=== PATIENT | male | born 1970 | race Caucasian/White ===

== ENCOUNTER 2018-02-28 08:04 | Emergency (ER) | payer OTHER ==
[~2018-02-28] VITALS: Ht 182.9 cm; Wt 93.0 kg
[2018-02-28 09:13] LABS: ABSOLUTE BASOPHIL COUNT 0 /CUMM (0.0-0.2); ABSOLUTE EOSINOPHIL COUNT 0.2 /CUMM (0.0-0.7); ABSOLUTE GRANULOCYTE CT 4.7 /CUMM (1.4-6.5); ABSOLUTE LYMPH COUNT 0.9 /CUMM (1.2-3.4); ABSOLUTE MONOCYTE COUNT 0.5 /CUMM (0.10-0.60); BASOPHIL % 0.6 % (0.0-2.0); EOSINOPHIL % 2.8 % (0-5); GRANULOCYTE % 74.5 % (42.2-75.2); HEMATOCRIT 45.9 % (42-52); MEAN CORPUSCULAR HGB 29.9 PG (27.0-31.0); MEAN CORPUSCULAR HGB CONC 33.8 G/DL (33.0-37.0); MEAN CORPUSCULAR VOLUME 88.5 FL (80.0-94.0); MEAN PLATELET VOLUME 7.3 FL (7.4-10.4); PLATELET COUNT 215 /CUMM (130-400); RBC DISTRIBUTION WIDTH 13.9 % (11.5-14.5); RED BLOOD CELL CT 5.19 /CUMM (4.70-6.10); WHITE BLOOD CELL COUNT 6.4 /CUMM (4.8-10.8)
--- NOTE | 2018-02-28 09:23 | ED GI/GU/ABDOMINAL COMPLAINT ---
History of Present Illness General Chief Complaint: Male Genitourinary Problems Stated Complaint: "MY PENIS IS BLACK AND BLUE" Source: patient, old records Exam Limitations: no limitations Vital Signs & Intake/Output Vital Signs & Intake/Output Vital Signs Date Time Temp Pulse Resp B/P B/P Pulse O2 O2 Flow FiO2 Mean Ox Delivery Rate 02/28 0811 96.0 84 16 136/85 98 Room Air Allergies Coded Allergies: No Known Allergies (02/28/18) Triage Note: PT TO ER C/C ECCHYMOSIS TO PENIS X 1 DAY, DENIES INJURY OR TRAUMA. NO RECENT USE OF ED MEDICATIONS. PT HAD INTERCOURSE LAST NIGHT WITHOUT ISSUE. DENIES ERECTION CURRENTLY. DENIES PAIN TO AREA. Triage Nurses Notes Reviewed? yes Onset: Morning Duration: hour(s):, constant, continues in ED Timing: recent history Quality/Severity: no pain Location: penis Radiation: no radiation Activities at Onset: none Prior Abdominal Problems: none Sexually Active: Yes Last Time You Were Sexual: last night Sexual Orientation: Heterosexual Use of Protection: No No Modifying Factors: none HPI: Last night after going out with his spouse and drinking alcohol they had sexual intercourse. During this time his spouse reported that his penis felt thicker. He does not report pain during this time and felt that he ejaculated. He presents with ecchymosis of the penis without testicular pain. He denies fever chills nausea vomiting diarrhea abdominal pain chest pain shortness of breath headache dysuria hematuria rash penile discharge. Past History Travel History Traveled to [place] past 21 day No Medical History Any Pertinent Medical History? see below for history Cardiovascular: hypertension, hyperlipidemia, RBBB, PVCs Renal: benign prost hyperplasia Surgical History Surgical History: non-contributory Psychosocial History What is your primary language Slovak Tobacco Use: Never used Family History Hx Contributory? No Review of Systems Review of Systems Constitutional: Reports: no symptoms. EENTM: Reports: no symptoms. Respiratory: Reports: no symptoms. Cardiovascular: Reports: no symptoms. GI: Reports: no symptoms. Genitourinary: Reports: see HPI. Musculoskeletal: Reports: no symptoms. Skin: Reports: no symptoms. Neurological/Psychological: Reports: no symptoms. Hematologic/Endocrine: Reports: no symptoms. Immunologic/Allergic: Reports: no symptoms. All Other Systems: Reviewed and Negative Physical Exam Physical Exam General Appearance: well developed/nourished, alert, awake, anxious, comfortable Head: atraumatic, normal appearance Eyes: Bilateral: normal appearance, PERRL, EOMI, normal inspection. Ears, Nose, Throat, Mouth: hearing grossly normal, moist mucous membrane Neck: normal inspection, supple, full range of motion, normal alignment Respiratory: normal breath sounds, chest non-tender, no respiratory distress, quiet respiration, lungs clear Cardiovascular: regular rate/rhythm, normal peripheral pulses, norml femoral pulses equa Peripheral Pulses: 4+ carotid (R), 4+ carotid (L) Gastrointestinal: normal bowel sounds, soft, non-tender, no organomegaly Male Genitals: normal cremaster reflex, circumferential penile ecchymosis from base to Jacques Back: normal inspection, normal range of motion Extremities: normal range of motion, no ligament instability Neurologic/Psych: no motor/sensory deficits, awake, alert, oriented x 3, normal gait, normal mood/affect, 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 No Sepsis Present: No Sepsis Focused Exam Completed? No Progress Differential Diagnosis: penile fracture Plan of Care: Orders Procedure Date/time Status URINALYSIS 02/28 08 Complete COMPREHENSIVE METABOLIC PANEL 02/28 0838 Complete CBC WITHOUT DIFFERENTIAL 02/28 0838 Complete Laboratory Tests 02/28/18 0855: Anion Gap 10, Estimated GFR > 60, BUN/Creatinine Ratio 13.3, Glucose 105 H, Calcium 10.0, Total Bilirubin 0.6, AST 28, ALT 32, Alkaline Phosphatase 77, Total Protein 7.3, Albumin 4.6, Globulin 2.7, Albumin/Globulin Ratio 1.7, CBC w Diff NO MAN DIFF REQ, RBC 5.19, MCV 88.5, MCH 29.9, MCHC 33.8, RDW 13.9, MPV 7.3 L, Gran % 74.5, Lymphocytes % 14.5 L, Monocytes % 7.6, Eosinophils % 2.8, Basophils % 0.6, Absolute Granulocytes 4.7, Absolute Lymphocytes 0.9 L, Absolute Monocytes 0.5, Absolute Eosinophils 0.2, Absolute Basophils 0, Urine Color YEL, Urine Clarity CLEAR, Urine pH 6.0, Ur Specific Rice 1.020, Urine Protein NEG, Urine Ketones NEG, Urine Nitrite NEG, Urine Bilirubin NEG, Urine Urobilinogen 0.2, Ur Leukocyte Esterase NEG, Ur Microscopic EXAM NOT REQUIRED, Urine Hemoglobin NEG, Urine Glucose NEG Diagnostic Imaging: Viewed by Me: Ultrasound. Discussed w/RAD: Ultrasound. Radiology Impression: No evidence of penile hematoma or tear of the tunica albuginea. Initial ED EKG: none Departure Departure Time of Disposition: 1151 Disposition: HOME OR SELF CARE Condition: Stable Clinical Impression Primary Impression: Penile trauma Referrals: Quan TIRADO,Db Galvan (PCP/Family) Additional Instructions: Follow up with your urologist Departure Forms: Customer Survey General Discharge Information
--- NOTE | 2018-02-28 11:27 | ULTRASOUND REPORT ---
EXAMINATION: US PELVIS, LIMITED CLINICAL INFORMATION: Ecchymosis of the penis. COMPARISON: None TECHNIQUE: Sonographic imaging of the penis was performed using a high-resolution linear 12 MHz transducer. FINDINGS: The corpus spongiosum and corpora cavernosa of the penis have normal sonographic appearance. There is no evidence of a fracture in the tunica albuginea or penile hematoma. IMPRESSION: No evidence of penile hematoma or tear of the tunica albuginea.
[2018-02-28 11:55] VITALS: BP 132/83
== END 2018-02-28 12:05 ==
LOC: ERH 08:04
PROVIDERS: Emergency Medicine
DX: S39.94XA Unspecified injury of external genitals, initial encounter (principal); X58.XXXA Exposure to other specified factors, initial encounter; Y92.9 Unspecified place or not applicable; Y93.9 Activity, unspecified
CPT/HCPCS: 81003